=== PATIENT | female | born 1950 | race Caucasian/White ===

== ENCOUNTER 2019-07-09 11:21 | Outpatient (CLI) | payer MEDICARE, OTHER, SELFPAY ==
--- NOTE | 2019-07-09 11:38 | XR_ITS ---
WS: [id number] FOOT RIGHT TECHNIQUE: 3 views of the right foot CLINICAL INFORMATION: RT FOOT PAIN COMPARISON: None. FINDINGS: No evidence of acute fracture or dislocation. Normal tarsal metatarsal alignment. Normal calcaneus. N ormal visualized talar dome. Mild degenerative arthritis. Soft tissue edema. IMPRESSION: No acute fractures
--- NOTE | 2019-07-09 11:38 | XR_ITS ---
WS: [id number] ANKLE RIGHT TECHNIQUE: 3 views of the right ankle CLINICAL INFORMATION: R ANKLE PAIN COMPARISON: None. FINDINGS: Soft tissue edema. Normal ankle mortise. Talar dome is normal. No visualized fractures. Normal visualized soft tissues. XR/XR ankle RT min 3V* [id number] IMPRESSION: Soft tissue edema. No acute fractures.
== END 2019-07-09 11:22 | disposition home or self-care (01) ==
PROVIDERS: Family Provider Family Medicine; PCP Nurse Practitioner Family; Visit Provider Nurse Practitioner Family
DX: M79.671 Pain in right foot (principal); M25.571 Pain in right ankle and joints of right foot; R60.0 Localized edema
CPT/HCPCS: 73610; 73630

== ENCOUNTER 2020-01-14 12:29 | Emergency (ER) | payer MEDICARE, OTHER, SELFPAY ==
[2020-01-14 12:36] VITALS: BP 163/76; PULSE 118; RESP 18; TEMP 39.5; O2SAT 98; BMI 28.3
--- NOTE | 2020-01-14 12:40 | XR_ITS ---
WS: [id number] Comparison 01/12/2009. Exam: XR chest 1V portable [id number] Date/Time of Exam: 01/14/2020 12:40 PM Reason For Exam: fever Findings: The lungs are clear and fully expanded. Costophrenic angles are sharp. No infiltrates. Bronchovascula r relief appears normal. Cardiac silhouette is unremarkable. Bony elements are intact. XR/XR chest 1V portable [id number] IMPRESSION: Unremarkable chest radiograph.
--- NOTE | 2020-01-14 12:47 | CT_ITS ---
WS: [id number] CT ABDOMEN AND PELVIS WITH CONTRAST HISTORY: abd pain TECHNIQUE: Imaging performed of the abdomen and pelvis with IV contrast. Single phase imaging of the abdomen. Coronal and sagittal reformats are submitted. All CT scans at [facility] use at least one of these dose optimization techniques: automated exposure control; mA and/or kV adjustment per patient size (includes targeted exams where dose is matched to clinical indication); or iterativ e reconstruction. IV CONTRAST: Omnipaque 300; 95 mL IV. Oral contrast: No DLP: 790.11 mGy.cm COMPARISON: None available. Lower thorax: Lung bases are clear. Heart is normal size. Small hiatal hernia. Liver/biliary system: Normal size liver. Lobulated cyst in the anterior LEFT lobe liver measures 2.3 cm. No bile duct dilatation. There is an additional smaller cyst in the RIGHT lobe. Additional small to characterize hypodensities in the inferior RIGHT lobe. Gallbladder: Normal. No gallstones or wall thickening. No pericholecystic fluid. Pancreas: Normal. Spleen: Normal. Adrenal glands: Normal. Right kidney: RIGHT kidney is slightly enlarged and edematous with delayed excretion. Mild to moderat e hydronephrosis. Dilated RIGHT ureter into the pelvis. Near the pelvic brim the ureter becomes very small caliber and there may be a stricture. No mass is identified. There is a nonobstructing calcific ation in the upper pole. Left kidney: Normal size kidney. 1 cm cyst in the mid kidney. No hydronephrosis. Aorta: Mild atherosclerosis with no aneurysm. Lymphadenopathy: None. Free fluid: None. GI tract: No obstruction. Numerous diverticula in the descending and sigmoid colon. The appendix is n ot definitely visualized. Abdominal wall: Unremarkable abdominal wall. No hernia. Pelvis: Normal anteverted uterus. There are numerous surgical clips in the pelvis from prior tubal li gation. Urinary bladder is well distended. Small RIGHT ovarian cyst at 1.5 cm. Bones: Mild degenerative disc disease at L3-4 and L4-5. CT/CT abdomen pelvis w con* [id number] IMPRESSION: 1. Mild to moderate RIGHT hydronephrosis and hydroureter to the level of the p elvic brim. Etiology of the obstruction is not determined. No calcified stone i s identified. Postinflammatory stricture or neoplasm or radiolucent stone shoul d be considered as possible etiologies. 2. Hepatic and renal cysts. 3. Diverticulosis without acute diverticulitis.
[2020-01-14 13:20] VITALS: RESP 18; O2SAT 98
[2020-01-14] MEDS: sodium chloride 0.9% 1,000 ML 999 ML IV (13:20)
[2020-01-14] MEDS: acetaminophen 325 mg Tablet 650 MG PO (13:20)
[2020-01-14] MEDS: ondansetron 2 mg/ML SDV 2 mL 4 MG IVP ×2 (13:20→15:27)
[2020-01-14] MEDS: morphine 4 mg/mL SDV 1 mL IVP ×2 (13:20→15:27)
[2020-01-14 13:25] LABS: Add Urine Microscopic? YES; Bilirubin Urine Neg (Negative); Blood Urine 1+ (Negative); Glucose Urine UA Norm (Normal); Ketones Urine 1+ (Negative); Leukocyte Esterase Urine Negative (Negative); Nitrate Urine Negative (Negative); Protein Urine Neg (Negative); Specific Gravity, Urine 1.015 (1.005-1.030); Urine Appearance SL Hazy (CLEAR); Urine Color Yellow (Yellow); Urobilinogen Urine Norm (Negative)
--- NOTE | 2020-01-14 13:32 | ED_ITS ---
HPI - Fever General: Chief Complaint: Fever Stated Complaint: FEVER,CHILLS Time Seen by Provider: 01/14/20 12:39 Source: patient Mode of arrival: ambulatory Limitations: no limitations History of Present Illness: HPI Narrative: 70-year-old female states she had a fever 103 today and has been having lower abdominal pain. States pain is been sharp in nature and mainly in her right lower quadrant. She has had some slight back pain to that is chronic in nature. She states she had a mild headache. She denies any vomiting but has had nausea. Denies any worsening or improving factors. Denies any known sick contacts. Associated symptoms: Reports abdominal pain, nausea and vomiting; Deny chest pain, dysuria or headache(s) Review of Systems Const: Reports: fever(s) Eyes: Denies: blurry vision or eye discomfort ENMT: Denies: throat pain or dental pain Card: Denies: chest pain Resp: Denies: dyspnea GI: Reports: abdominal pain, nausea and vomiting : Denies: dysuria Musc: Denies: neck pain or back pain Skin/Breast: Denies: rash Neuro: Denies: headache(s) Psych: Denies: depression Lazarus/Lymph: Denies: easy bruising All/Imm: Denies: urticaria Physical Exam Const: COMMON NORMALS: no acute distress, patient oriented x3 and healthy appearing HENMT: COMMON NORMALS: normocephalic and atraumatic HEAD & SCALP: normocephalic and atraumatic Eye: COMMON NORMALS: Equal, round and reactive pupils present and EOMs intact bilaterally PUPIL: Yes Equal, round and reactive pupils present Neck/C-Spine: COMMON NORMALS: full ROM and supple Chest: COMMONS NORMALS: normal inspection of the chest and normal palpation of entire chest wall Resp: COMMON NORMALS: normal respiratory effort, No retractions, No use of accessory muscles and clear to auscultation bilaterally AUSCULTATION: clear to auscultation bilaterally Cardio: COMMON NORMALS: regular rhythm and No murmurs present (Cardio) RATE: tachycardic RHYTHM: regular rhythm GI: COMMON NORMALS: Normal to inspection, nondistended, normoactive bowel sounds present, Soft to palpation and no masses PALPATION: Yes Soft to palpation OTHER: diffuse tenderness Extremity: COMMON NORMALS: normal to inspection and full ROM Neuro: COMMON NORMALS: patient oriented x3, moves all extremities and no focal motor deficits Psych: COMMON NORMALS: mental status grossly normal, Normal thought process present and cooperative THOUGHT PROCESS: Normal thought process present Skin: COMMON NORMALS: no rashes or lesions noted and no wounds GENERAL SKIN EXAM: no rashes or lesions noted Course Vital Signs: Vital signs: Vital Signs Temperature 98.5 F 01/14/20 16:23 Pulse Rate 85 01/14/20 16:16 Respiratory Rate 23 H 01/14/20 16:16 Blood Pressure 109/63 01/14/20 16:16 Pulse Oximetry 96 01/14/20 16:16 MDM - Fever MDM Narrative: Medical decision making narrative: Patient presents with a fever. Patient's blood work here is normal CT abdomen showed no acute infection. Did show a possible stricture and she is to follow-up with her PCP in 2 to 4 days for that. We will swab her for Covid at this time as well. X- ray shows no signs pneumonia and she has no signs of pyelonephritis or urinary tract infection. We will give her Rocephin and blood cultures were sent off. Patient's fever is since resolved. She is to follow-up with her PCP and return if worsening. Lab Data: Labs: Lab Results 01/14/20 01/14/20 01/14/20 Range/Units 13:15 13:30 13:30 WBC 5.7 (4.0-10.0) 10^3/ uL RBC 4.75 (4.1-5.3) 10^6/u L Hgb 13.6 (11.5-15.3) g/dL Hct 43.0 (37.0-47.0) % MCV 90.5 (81-99) fL MCH 28.6 (28.0-34.0) pg MCHC 31.6 (30.0-36.0) g/dL RDW 13.2 (12.1-15.1) % Plt Count 210 (130-400) 10^3/c mm MPV 11.5 H (7.4-10.4) fL Neut % (Auto) 92.1 % Lymph % (Auto) 7.0 % [place] % (Auto) 0.5 % Eos % (Auto) 0.0 % Baso % (Auto) 0.2 % Neut # (Auto) 5.23 (1.8-7.7) 10^3/u L Lymph # (Auto) 0.4 L (0.8-4.8) 10^3/u L [place] # (Auto) 0.0 L (0.2-0.9) 10^3/u L Eos # (Auto) 0.0 (0.0-0.8) 10^3/u L Baso # (Auto) 0.0 (0.0-0.1) 10^3/u L Nucleated RBC % (a uto) 0 % Nucleated RBCs # 0.0 /100WBC Sodium 139 (136-145) mmol/L Potassium 4.0 (3.5-5.1) mmol/L Chloride 105 (98-107) mmol/L Carbon Dioxide 20 L (22-29) mmol/L Anion Gap 18.0 (5-19) BUN 19 (8-23) mg/dL Creatinine 1.1 H (0.5-0.9) mg/dL GFR Calculation Not Reportable Glucose 127 H (65-115) mg/dL Calculated Osmolal ity 292 (285-295) mOsm/k g Lactate (0.5-2.2) mmol/L Calcium 9.1 (8.5-10.5) mg/dL Total Bilirubin 0.6 (0.15-1.2) mg/dL AST 26 (0-32) U/L ALT 24 (0-33) U/L Alkaline Phosphata se 88 (35-105) IU/L C-Reactive Protein 4.7 (0.0-4.9) mg/L Total Protein 6.6 (6.6-8.7) g/dL Albumin 4.2 (3.5-5.2) g/dL Globulin 2.4 (1.3-4.6) g/dL Urine Color Yellow (Yellow) Urine Appearance Sl hazy (CLEAR) Urine pH 6.0 (5-7) Ur Specific Gravit y 1.015 (1.005-1.030) Urine Protein Neg (Negative) Urine Glucose (UA) Norm (Normal) Urine Ketones 1+ H (Negative) Urine Blood 1+ H (Negative) Urine Nitrate Negative (Negative) Urine Bilirubin Neg (Negative) Urine Urobilinogen Norm (Negative) mg/dL Ur Leukocyte Gina ase Negative (Negative) Urine RBC 5-10 H (0-2) /hpf Urine WBC 0-4 H (0-5) /hpf Ur Squamous Epith Cells 25-40 H (0-5) /hpf Amorphous Sediment Not Reportable Urine Bacteria Trace (NONE) /hpf 01/14/20 Range/Units 14:00 WBC (4.0-10.0) 10^3/ uL RBC (4.1-5.3) 10^6/u L Hgb (11.5-15.3) g/dL Hct (37.0-47.0) % MCV (81-99) fL MCH (28.0-34.0) pg MCHC (30.0-36.0) g/dL RDW (12.1-15.1) % Plt Count (130-400) 10^3/c mm MPV (7.4-10.4) fL Neut % (Auto) % Lymph % (Auto) % [place] % (Auto) % Eos % (Auto) % Baso % (Auto) % Neut # (Auto) (1.8-7.7) 10^3/u L Lymph # (Auto) (0.8-4.8) 10^3/u L [place] # (Auto) (0.2-0.9) 10^3/u L Eos # (Auto) (0.0-0.8) 10^3/u L Baso # (Auto) (0.0-0.1) 10^3/u L Nucleated RBC % (a uto) % Nucleated RBCs # /100WBC Sodium (136-145) mmol/L Potassium (3.5-5.1) mmol/L Chloride (98-107) mmol/L Carbon Dioxide (22-29) mmol/L Anion Gap (5-19) BUN (8-23) mg/dL Creatinine (0.5-0.9) mg/dL GFR Calculation Glucose (65-115) mg/dL Calculated Osmolal ity (285-295) mOsm/k g Lactate 3.1 H (0.5-2.2) mmol/L Calcium (8.5-10.5) mg/dL Total Bilirubin (0.15-1.2) mg/dL AST (0-32) U/L ALT (0-33) U/L Alkaline Phosphata se (35-105) IU/L C-Reactive Protein (0.0-4.9) mg/L Total Protein (6.6-8.7) g/dL Albumin (3.5-5.2) g/dL Globulin (1.3-4.6) g/dL Urine Color (Yellow) Urine Appearance (CLEAR) Urine pH (5-7) Ur Specific Gravit y (1.005-1.030) Urine Protein (Negative) Urine Glucose (UA) (Normal) Urine Ketones (Negative) Urine Blood (Negative) Urine Nitrate (Negative) Urine Bilirubin (Negative) Urine Urobilinogen (Negative) mg/dL Ur Leukocyte Gina ase (Negative) Urine RBC (0-2) /hpf Urine WBC (0-5) /hpf Ur Squamous Epith Cells (0-5) /hpf Amorphous Sediment Urine Bacteria (NONE) /hpf Imaging Data^: CXR: Attestation: I personally reviewed and interpreted this imaging study as follows: Radiologist's impression: [address] [place] [address] XRay Report Signed Patient: Iveth Al Unit #: [id number] : 1950 Age/Sex: 70 / F ADM Date: 01/14/20 Loc: ER Room/Bed: Attending Dr: Ordering Provider/Ordering MD: Mariia Antony MD Date of Service: 01/14/20 Procedure(s): XR chest 1V portable [id number] Accession Number(s): [id number] Report Number: [id number] WS: [id number] Comparison 01/12/2009. Exam: XR chest 1V portable [id number] Date/Time of Exam: 01/14/2020 12:40 PM Reason For Exam: fever Findings: The lungs are clear and fully expanded. Costophrenic angles are sharp. No infiltrates. Bronchovascular relief appears normal. Cardiac silhouette is unremarkable. Bony elements are intact. XR/XR chest 1V portable [id number] IMPRESSION: Unremarkable chest radiograph. CT Abd/Pel: Radiologist's impression: [address] [address] [address] Scan Report Signed Patient: Iveth Al Unit #: [id number] : 1950 Age/Sex: 70 / F ADM Date: 01/14/20 Loc: ER Room/Bed: Attending Dr: Ordering Provider/Ordering MD: Mariia Antony MD Date of Service: 01/14/20 Procedure(s): CT abdomen pelvis w con* [id number] Accession Number(s): [id number] Report Number: [id number] WS: [id number] CT ABDOMEN AND PELVIS WITH CONTRAST HISTORY: abd pain TECHNIQUE: Imaging performed of the abdomen and pelvis with IV contrast. Single phase imaging of the abdomen. Coronal and sagittal reformats are submitted. All CT scans at [facility] use at least one of these dose optimization techniques: automated exposure control; mA and/or kV adjustment per patient size (includes targeted exams where dose is matched to clinical indication); or iterative reconstruction. IV CONTRAST: Omnipaque 300; 95 mL IV. Oral contrast: No DLP: 790.11 mGy.cm COMPARISON: None available. Lower thorax: Lung bases are clear. Heart is normal size. Small hiatal hernia. Liver/biliary system: Normal size liver. Lobulated cyst in the anterior LEFT lobe liver measures 2.3 cm. No bile duct dilatation. There is an additional smaller cyst in the RIGHT lobe. Additional small to characterize hypodensities in the inferior RIGHT lobe. Gallbladder: Normal. No gallstones or wall thickening. No pericholecystic fluid. Pancreas: Normal. Spleen: Normal. Adrenal glands: Normal. Right kidney: RIGHT kidney is slightly enlarged and edematous with delayed excretion. Mild to moderate hydronephrosis. Dilated RIGHT ureter into the pelvis. Near the pelvic brim the ureter becomes very small caliber and there may be a stricture. No mass is identified. There is a nonobstructing calcification in the upper pole. Left kidney: Normal size kidney. 1 cm cyst in the mid kidney. No hydronephrosis. Aorta: Mild atherosclerosis with no aneurysm. Lymphadenopathy: None. Free fluid: None. GI tract: No obstruction. Numerous diverticula in the descending and sigmoid colon. The appendix is not definitely visualized. Abdominal wall: Unremarkable abdominal wall. No hernia. Pelvis: Normal anteverted uterus. There are numerous surgical clips in the pelvis from prior tubal ligation. Urinary bladder is well distended. Small RIGHT ovarian cyst at 1.5 cm. Bones: Mild degenerative disc disease at L3-4 and L4-5. CT/CT abdomen pelvis w con* [id number] IMPRESSION: 1. Mild to moderate RIGHT hydronephrosis and hydroureter to the level of the pelvic brim. Etiology of the obstruction is not determined. No calcified stone is identified. Postinflammatory stricture or neoplasm or radiolucent stone should be considered as possible etiologies. 2. Hepatic and renal cysts. 3. Diverticulosis without acute diverticulitis. EKG Data^: EKG 1: Attestation: I personally reviewed and interpreted this EKG as follows: EKG interpretation date: 01/14/20 EKG interpretation time: 12:49 Interpretation: sinus tach hr [address] or t wave abnormalities qrs 90 qtc 365 Discharge Plan Discharge Patient Disposition: Home Clinical Impression: Fever of unknown origin, Abdominal pain Condition: Stable Prescriptions: [place] 5-325 mg tablet 1 tab PO Q6H PRN (Reason: pain) Qty: 14 RF: 0 Keflex 500 mg capsule 500 mg PO Q6H 7 Days Qty: 28 RF: 0 ondansetron 4 mg tablet,disintegrating 4 mg PO Q6H PRN (Reason: nausea and vomiting) Qty: 14 RF: 0 No Action Multiple Vitamins Tablet 1 tab PO DAILY RF: 0 ibuprofen 800 mg tablet 800 mg PO TID PRN (Reason: unknown) RF: 0 aspirin 81 mg Tablet,Delayed Release (Dr/Ec) 81 mg PO DAILY RF: 0 flaxseed oil 1,000 mg Capsule 1,000 mg PO TID RF: 0 Calcium 500 500 mg calcium (1,250 mg) Tablet See Rx Instructions .ROUTE .COMPLEX RF: 0 vitamin B complex Tablet 1 tab PO BID RF: 0 [place] Thyroid 90 mg tablet 90 mg PO DAILY RF: 0 Bi-Est Fohyiln-Godedjv-Ccnj 1 cap PO DAILY RF: 0 Fish Oil 2 cap PO DAILY RF: 0 Vitamin B-12 1 tab PO DAILY RF: 0 Vitamin C 2 tab PO DAILY RF: 0 Vitamin D3 1 tab PO DAILY RF: 0 biotin 1 cap PO DAILY RF: 0 Discharge Orders: Discharge Order (Routine); Ordered 01/14/20 Ordered By: Mariia Antony Referrals: Aleksandr Perez DO [Family Provider] - 1-3 days Wolf,JERI Olmstead [Primary Care Provider] - Discharge Diet: Advance as tolerated Discharge Activity: Resume usual activity Patient Instructions: Fever in Adults (ED), Abdominal Pain (ED) Discharge Date/Time: 01/14/20 16:31 Coding Level of Care Code ED Orthopedic Tech for [place] Fwd Exam Comprehensive
[2020-01-14 13:39] LABS: Add Urine Culture? No; Bacteria Urine TRACE /hpf; Squamous Epithelial Cell Urine 25-40 /hpf (0-5); WBC Urine 0-4 /hpf (0-5)
[2020-01-14 13:58] LABS: Basophils % 0.2 %; Hemoglobin 13.6 g/dL (11.5-15.3); Lymphocytes # 0.4 10^3/uL (0.8-4.8); Mean Corpuscular HGB Conc 31.6 g/dL (30.0-36.0); Mean Corpuscular Hemoglobin 28.6 pg (28.0-34.0); Mean Corpuscular Volume 90.5 fL (81-99); Mean Platelet Volume 11.5 fL (7.4-10.4); Monocytes % 0.5 %; Neutrophils # 5.23 10^3/uL (1.8-7.7); Neutrophils % 92.1 %; Nucleated Red Blood Cells % 0 %; Platelet Count 210 10^3/cmm (130-400); Red Blood Count 4.75 10^6/uL (4.1-5.3); Red Cell Distribution Width 13.2 % (12.1-15.1); White Blood Count 5.7 10^3/uL (4.0-10.0)
[2020-01-14 14:15] LABS: Alanine Aminotransferase 24 U/L (0-33); Albumin Level 4.2 g/dL (3.5-5.2); Alkaline Phosphatase 88 IU/L (35-105); Aspartate Amino Transferase 26 U/L (0-32); Blood Urea Nitrogen 19 mg/dL (8-23); C Reactive Protein 4.7 mg/L (0.0-4.9); Calcium 9.1 mg/dL (8.5-10.5); Carbon Dioxide 20 mmol/L (22-29); Chloride 105 mmol/L (98-107); Globulin 2.4 g/dL (1.3-4.6); Glucose 127 mg/dL (65-115); Osmolality Calculated 292 mOsm/kg (285-295); Sodium 139 mmol/L (136-145); Total Bilirubin 0.6 mg/dL (0.15-1.2); Total Protein 6.6 g/dL (6.6-8.7)
[2020-01-14 14:41] LABS: Lactate (Lactic Acid level) 3.1 mmol/L (0.5-2.2)
[2020-01-14] MEDS: cefTRIAXone 1,000 MG in sodium chloride 0.9% (plus) 50 ML 100 MG IV (15:26)
[2020-01-14 15:27] VITALS: RESP 18; O2SAT 98
[2020-01-14 16:16] VITALS: BP 109/63; PULSE 85; RESP 23; O2SAT 96
[2020-01-14 16:23] VITALS: TEMP 36.9
[2020-01-14 16:29] VITALS: BP 114/78; PULSE 78; RESP 19; O2SAT 98
[2020-01-16 00:42] LABS: Quest SARS-CoV-2 RNA NOT DETECTED (NOT DETECTED)
--- NOTE | 2020-01-16 08:39 | PC.NURSE ---
This nurse contacted Pt to inform them of negative COVID results. Pt verbalized understanding.
== END 2020-01-14 16:31 | disposition home or self-care (01) ==
PROVIDERS: Emergency Provider Emergency Medicine; Family Provider Family Medicine; PCP Nurse Practitioner Family
DX: R50.9 Fever, unspecified (principal); R10.9 Unspecified abdominal pain; Z79.82 Long term (current) use of aspirin
CPT/HCPCS: 12345; 71045; 74177; 80053; 81001; 83605; 85025; 86140; 87635; 96365; 96375; 96376; 99283; J0696; J2270; J2405; J7030

== ENCOUNTER → 2021-03-30 08:40 | Outpatient (BNVA) | payer MEDICARE, OTHER, SELFPAY | PROVIDERS: Family Provider Family Medicine; PCP Nurse Practitioner Family; Referring Provider Nurse Practitioner Family; Visit Provider Internal Medicine | DX: E03.9 Hypothyroidism, unspecified (principal) | CPT/HCPCS: 99204 ==

== ENCOUNTER → 2021-08-19 09:13 | Outpatient (BNVA) | payer MEDICARE, OTHER, SELFPAY | PROVIDERS: Family Provider Family Medicine; PCP Nurse Practitioner Family; Visit Provider Internal Medicine | DX: E03.9 Hypothyroidism, unspecified (principal); R73.03 Prediabetes; R53.83 Other fatigue; L65.9 Nonscarring hair loss, unspecified | CPT/HCPCS: 83036; 84439; 84443; 99214 ==

== ENCOUNTER → 2022-02-22 08:27 | Outpatient (BNVA) | payer MEDICARE, OTHER, SELFPAY | PROVIDERS: Family Provider Family Medicine; PCP Nurse Practitioner Family; Visit Provider Internal Medicine | DX: E03.9 Hypothyroidism, unspecified (principal); R53.83 Other fatigue; R73.03 Prediabetes; L65.9 Nonscarring hair loss, unspecified; Z79.890 Hormone replacement therapy | CPT/HCPCS: 99214 ==

== ENCOUNTER → 2022-02-28 08:31 | Outpatient (BNVA) | payer MEDICARE, OTHER, SELFPAY | PROVIDERS: Family Provider Family Medicine; PCP Nurse Practitioner Family; Visit Provider Internal Medicine | DX: E03.9 Hypothyroidism, unspecified (principal); R73.03 Prediabetes; L65.9 Nonscarring hair loss, unspecified; R53.83 Other fatigue | CPT/HCPCS: 84439; 84443 ==

== ENCOUNTER 2022-08-18 09:36 | Outpatient (CLI) | payer MEDICARE, MEDICAID, SELFPAY ==
[2022-08-18 10:45] LABS: Estmated Average Glucose 128; Hemoglobin A1C 6.1 % (4.0-6.0)
[2022-08-18 10:54] LABS: Free T4 Free Thyroxine 1.41 ng/dL (0.82-1.77); Thyroid Stimulating Hormone 0.88 uIU/mL (0.27-4.20)
== END 2022-08-18 09:37 | disposition home or self-care (01) ==
PROVIDERS: PCP Nurse Practitioner Family; Visit Provider Internal Medicine
DX: E03.9 Hypothyroidism, unspecified (principal); R53.83 Other fatigue; R73.03 Prediabetes
CPT/HCPCS: 83036; 84439; 84443

== ENCOUNTER → 2022-08-23 08:55 | Outpatient (BNVA) | payer MEDICARE, MEDICAID, SELFPAY | PROVIDERS: PCP Nurse Practitioner Family; Visit Provider Internal Medicine | DX: E03.9 Hypothyroidism, unspecified (principal); R73.03 Prediabetes; R53.83 Other fatigue; L65.9 Nonscarring hair loss, unspecified; Z79.890 Hormone replacement therapy | CPT/HCPCS: 99214 ==

== ENCOUNTER 2023-02-22 10:58 | Outpatient (CLI) | payer MEDICARE, MEDICAID, SELFPAY ==
[2023-02-22 12:23] LABS: Estmated Average Glucose 131; Hemoglobin A1C 6.2 % (4.0-6.0)
[2023-02-22 12:25] LABS: Creatinine Urine, Random 74 mg/dL (28-217); Microalbum Creatinine Ratio Ur 14 mg/dL (0-20); Microalbumin Random Urine 1 ug/dL (0-20)
[2023-02-22 12:32] LABS: Alanine Aminotransferase 22 U/L (0-33); Albumin Level 4.5 g/dL (3.5-5.2); Alkaline Phosphatase 87 U/L (35-105); Anion Gap 13.3 (5-19); Aspartate Amino Transferase 21 U/L (0-32); Blood Urea Nitrogen 19 mg/dL (8-23); Calcium 9.8 mg/dL (8.5-10.5); Carbon Dioxide 29 mmol/L (22-29); Chloride 104 mmol/L (98-107); Chol HDL Ratio 5.55 mg/dL (0.0-4.40); Cholesterol 322 mg/dL (0-200); Free T4 Free Thyroxine 0.75 ng/dL (0.82-1.77); Globulin 2.6 g/dL (1.3-4.6); Glucose 90 mg/dL (65-115); HDL Cholesterol 58 mg/dL (60-100); LDL Cholesterol Calculated 240 mg/dL (50-129); LDL HDL Ratio 4.14 RATIO (0.00-3.22); Osmolality Calculated 296 mOsm/kg (285-295); Potassium 4.3 mmol/L (3.5-5.1); Sodium 142 mmol/L (136-145); Thyroid Stimulating Hormone 12.03 uIU/mL (0.27-4.20); Total Bilirubin 0.2 mg/dL (0.15-1.2); Total Protein 7.1 g/dL (6.6-8.7); Triglycerides 118 mg/dL (0-150)
== END 2023-02-22 10:59 | disposition home or self-care (01) ==
LOC: LAB 11:02
PROVIDERS: PCP Nurse Practitioner Family; Visit Provider Internal Medicine
DX: E03.9 Hypothyroidism, unspecified (principal); R53.83 Other fatigue; L65.9 Nonscarring hair loss, unspecified; R73.03 Prediabetes
CPT/HCPCS: 36415; 80053; 80061; 82044; 83036; 84439; 84443

== ENCOUNTER → 2023-03-02 07:59 | Outpatient (BNVA) | payer MEDICARE, MEDICAID, SELFPAY | PROVIDERS: PCP Nurse Practitioner Family; Visit Provider Internal Medicine | DX: E03.9 Hypothyroidism, unspecified (principal); R53.83 Other fatigue; L65.9 Nonscarring hair loss, unspecified; R73.03 Prediabetes; Z79.890 Hormone replacement therapy | CPT/HCPCS: 99214 ==

== ENCOUNTER 2023-05-03 09:34 | Outpatient (CLI) | payer MEDICARE, MEDICAID, SELFPAY ==
[2023-05-03 10:14] LABS: Free T4 Free Thyroxine 1.47 ng/dL (0.82-1.77); Thyroid Stimulating Hormone 0.44 uIU/mL (0.27-4.20)
== END 2023-05-03 09:35 | disposition home or self-care (01) ==
LOC: LAB 09:36
PROVIDERS: PCP Nurse Practitioner Family; Visit Provider Internal Medicine
DX: E11.9 Type 2 diabetes mellitus without complications (principal)
CPT/HCPCS: 36415; 84439; 84443

== ENCOUNTER → 2023-07-04 12:12 | Outpatient (BNVA) | payer MEDICARE, MEDICAID, SELFPAY | PROVIDERS: PCP Nurse Practitioner Family; Visit Provider Internal Medicine | DX: R53.83 Other fatigue (principal); R73.03 Prediabetes; E03.9 Hypothyroidism, unspecified; L65.9 Nonscarring hair loss, unspecified; Z68.29 Body mass index [BMI] 29.0-29.9, adult; Z79.890 Hormone replacement therapy | CPT/HCPCS: 36415; 83036; 84439; 84443; 99214 ==

== ENCOUNTER 2023-12-27 09:33 | Outpatient (CLI) | payer MEDICARE, MEDICAID, SELFPAY ==
[2023-12-27 10:16] LABS: Estmated Average Glucose 131; Hemoglobin A1C 6.2 % (4.0-6.0)
[2023-12-27 10:25] LABS: Free T4 Free Thyroxine 1.49 ng/dL (0.82-1.77); Thyroid Stimulating Hormone 0.53 uIU/mL (0.27-4.20)
== END 2023-12-27 09:34 | disposition home or self-care (01) ==
LOC: LAB 09:35
PROVIDERS: PCP Nurse Practitioner Family; Visit Provider Internal Medicine
DX: R53.83 Other fatigue (principal); R73.03 Prediabetes
CPT/HCPCS: 36415; 83036; 84439; 84443

== ENCOUNTER → 2024-01-03 10:45 | Outpatient (BNVA) | payer MEDICARE, MEDICAID, SELFPAY | PROVIDERS: PCP Nurse Practitioner Family; Visit Provider Internal Medicine | DX: E03.9 Hypothyroidism, unspecified (principal); R53.83 Other fatigue; L65.9 Nonscarring hair loss, unspecified; R73.03 Prediabetes; R79.81 Abnormal blood-gas level; Z79.890 Hormone replacement therapy | CPT/HCPCS: 99214 ==

== ENCOUNTER → 2025-01-07 10:38 | Outpatient (BNVA) | payer MEDICARE, SELFPAY | PROVIDERS: PCP Nurse Practitioner Family; Referring Provider Neurological Surgery; Visit Provider Anesthesiology Pain Medicine | DX: M51.16 Intervertebral disc disorders with radiculopathy, lumbar region (principal) | CPT/HCPCS: 99204 ==

== ENCOUNTER → 2025-02-04 10:14 | Outpatient (BNVA) | payer MEDICARE, SELFPAY | PROVIDERS: PCP Nurse Practitioner Family; Visit Provider Anesthesiology Pain Medicine | DX: M51.16 Intervertebral disc disorders with radiculopathy, lumbar region (principal) | CPT/HCPCS: 99213 ==